=== PATIENT | male | born 1990 | race African-American/Black ===

== ENCOUNTER 2016-04-14 08:53 | Emergency (ER) | payer SELFPAY ==
[~2016-04-14] VITALS: Ht 180.3 cm; Wt 115.0 kg
[~2016-04-14 08:53] MED LIST: Z.0.NO CURRENT MEDS
[2016-04-14 08:57] VITALS: BP 140/69; PULSE 75; RESP 18; TEMP 97.8; O2SAT 100
[2016-04-14] MEDS ORDERED: IBUP800T23 PO (12:04)
--- NOTE | 2016-04-14 12:04 | PD ---
HPI Chief Complaint: Abdominal Pain Time Seen by Provider: 11:56 Travel History International Travel<30 days: No Contact w/Intl Traveler<30days: No Traveled to known affect area: No History of Present Illness HPI 26 year old male presents to the emergency department for evaluation of lower abdominal pain/upper groin pain that has been occurring only with heavy lifting at work. Patient states that when he lifts anything heavy, he will have lower abdominal pain. When he is not lifting, pain is mild and "achy", but mostly resolved. He denies any bulge or evidence of hernia. He denies any fevers/ chills. No chest pain, no shortness of breath. No nausea/vomiting. No constipation or diarrhea. He denies any testicular pain or penile discharge. He denies any tobacco/drug use, admits to occasional alcohol use. He denies any other complaints at this time. [facility] Past Medical History Diminished Hearing: No Social History Alcohol Use: No Tobacco Use: No Substance Use: No Allergies-Medications (Allergen,Severity, Reaction): Coded Allergies: No Known Allergies (Verified Allergy, Mild, 06/21/06) Reported Meds & Prescriptions Reported Meds & Active Scripts Active Reported No Current Meds (Miscellaneous Medication) Misc Review of Systems Except as stated in HPI: all other systems reviewed are Neg Physical Exam Narrative GENERAL: Well developed, well nourished male patient, ambulatory and in no acute distress. Afebrile. SKIN: Warm and dry. HEAD: Normocephalic. Atraumatic. EYES: No scleral icterus. No injection or drainage. NECK: Supple, trachea midline. No JVD or lymphadenopathy. CARDIOVASCULAR: Regular rate and rhythm without murmurs, gallops, or rubs. RESPIRATORY: Breath sounds equal bilaterally. No accessory muscle use. Lung sounds clear to auscultation throughout. GASTROINTESTINAL: Abdomen soft, non-tender, nondistended. No abdominal/groin tenderness to palpation. No evidence of hernia. Tissues are soft. MUSCULOSKELETAL: No cyanosis, or edema. BACK: Nontender without obvious deformity. No CVA tenderness. Data Data Last Documented VS Vital Signs Date Time Temp Pulse Resp B/P Pulse Ox O2 Delivery O2 Flow Rate FiO2 04/14/16 08:57 97.8 75 18 140/69 100 Room Air MDM Medical Decision Making Medical Screen Exam Complete: Yes Emergency Medical Condition: Yes Medical Record Reviewed: Yes Differential Diagnosis muscle strain vs. muscle spasm vs. hernia vs. uti Narrative Course 26 year old male presents to the emergency department for evaluation of groin pain when lifting for the past 2 days. When he is not lifting, pain is relieved. Physical exam is reassuring and no evidence of hernia on exam. No groin/abdominal tenderness to palpation. Vital signs stable. I discussed the findings and plan with my attending physician, Dr. Bach, who agrees with plan and disposition. Patient is instructed on symptoms to return immediately for. Patient is agreeable. He will be discharged with a prescription for Ibuprofen. Diagnosis Primary Impression: Inguinal muscle strain Qualified Code: S39.013A - Inguinal muscle strain, initial encounter Referrals: Primary Care Physician call for appointment Patient Instructions: General Instructions, Muscle Strain (ED) Departure Forms: Tests/Procedures, Work Release Enter return to work date: Apr 16, 2016 Additional Instructions: Take Ibuprofen as directed as needed with food for pain. Follow up with your primary care physician. Return to the emergency department for any acute, worsening of symptoms. Med/Other Pt SpecificInfo: Prescription(s) given Scripts Ibuprofen 800 Mg [id number] Mg PO TID PRN (PAIN SCALE 1 TO 10) #21 TAB Ref 0 Prov:Crystal Perez 04/14/16 Disposition: 01 DISCHARGE HOME Condition: Stable Crystal Perez Apr 14, 2016 12:04
== END 2016-04-14 12:52 | disposition home or self-care (01) ==
LOC: NETRI 08:53
DX: S39.013A Strain of muscle, fascia and tendon of pelvis, initial encounter (principal); X50.0XXA Overexertion from strenuous movement or load, initial encounter; Y92.9 Unspecified place or not applicable; Y99.0 Civilian activity done for income or pay
CPT/HCPCS: 99282

== ENCOUNTER 2016-08-03 10:50 | Emergency (ER) | payer SELFPAY ==
[~2016-08-03] VITALS: Ht 177.8 cm; Wt 127.9 kg
[~2016-08-03 10:50] MED LIST changes: +IBUP800T23 PO
[2016-08-03 11:02] VITALS: BP 142/87; PULSE 77; RESP 18; TEMP 98.3; O2SAT 98
--- NOTE | 2016-08-03 11:32 | PD ---
HPI Chief Complaint: Abdominal Pain Time Seen by Provider: 11:23 Travel History International Travel<30 days: No Contact w/Intl Traveler<30days: No Traveled to known affect area: No History of Present Illness HPI Says abdominal pain on the chief complaint but he came here because his sexual partner was diagnosed with Trichomonas. He does not have any symptoms. He is not having abdominal pain or nausea or vomiting or urethral discharge or fever. Severity is mild PFSH Past Medical History Medical History: Denies Significant Hx Diminished Hearing: No Immunizations Current: Yes Tetanus Vaccination: < 5 Years Influenza Vaccination: No Past Surgical History Surgical History: No Previous Surgery Social History Alcohol Use: Yes (occ) Tobacco Use: No Substance Use: No Allergies-Medications (Allergen,Severity, Reaction): Coded Allergies: No Known Allergies (Verified , 08/03/16) Reported Meds & Prescriptions Reported Meds & Active Scripts Active No Active Prescriptions or Reported Medications Review of Systems General / Constitutional: No: Fever HENT: No: Headaches Cardiovascular: No: Chest Pain or Discomfort Physical Exam Narrative GASTROINTESTINAL: Abdomen soft, non-tender, nondistended. Positive bowel sounds. No hepato-splenomegaly, or palpable masses. No guarding. : Circumcised penis without lesions. no inguinal hernia SKIN: Focused skin assessment reveals no rash or ulcers. Skin is warm and dry. Palpation shows no induration or nodules. Data Data Last Documented VS Vital Signs Date Time Temp Pulse Resp B/P Pulse Ox O2 Delivery O2 Flow Rate FiO2 08/03/16 11:14 08/03/16 11:02 98.3 77 18 98 Room Air MDM Medical Decision Making Medical Screen Exam Complete: Yes Emergency Medical Condition: Yes Medical Record Reviewed: Yes Differential Diagnosis Urethritis, colitis, hernia Narrative Course I have reviewed the patient's electronic medical record. Patient's exam is normal and he is asymptomatic. Recommending health department visit for STD evaluation I offered him treatment of trichomonas but he declines and wants to get tested prior to treatment Diagnosis Primary Impression: Exposure to STD Additional Instructions: Follow up with health department for STD testing Med/Other Pt SpecificInfo: Other Scripts No Active Prescriptions or Reported Meds Disposition: 01 DISCHARGE HOME Condition: Stable Martin Lee MD Aug 03, 2016 11:32
== END 2016-08-03 11:35 | disposition home or self-care (01) ==
LOC: PHED 10:50
DX: Z20.2 Contact with and (suspected) exposure to infections with a predominantly sexual mode of transmission (principal)
CPT/HCPCS: 99281

== ENCOUNTER 2017-01-20 08:32 | Emergency (ER) | payer SELFPAY ==
[~2017-01-20] VITALS: Ht 180.3 cm; Wt 128.0 kg
[2017-01-20 08:34] VITALS: BP 137/65; PULSE 87; RESP 16; TEMP 98.1; O2SAT 100
[2017-01-20 08:44] VITALS: BP 167/69; PULSE 65; RESP 16; O2SAT 99
[2017-01-20] MEDS ORDERED: ASPIRIN 81 MG CHEW TAB PO ONE (08:45)
[2017-01-20] MEDS ORDERED: MORPHINE SULFATE 4 MG/ML INJ IV PUSH ONE (08:45)
[2017-01-20] MEDS ORDERED: ONDANSETRON HCL 4 MG/2 ML VIAL IV PUSH ONE (08:45)
[2017-01-20] MEDS ORDERED: SODIUM CHLORIDE 0.9% FLUSH 10 ML FLUSH IVF PRN (08:45)
--- NOTE | 2017-01-20 08:47 | PD ---
HPI . Chest pain Chief Complaint: Chest Pain Time Seen by Provider: 08:43 Travel History International Travel<30 days: No Contact w/Intl Traveler<30days: No Traveled to known affect area: No History of Present Illness HPI This patient presents ambulatory with a chief complaint of chest pain. Onset was on awakening approximately 30 minutes prior to presentation. He describes a pressure-like sensation in the center of his chest. There is no radiation. He rates it 8/10. He has no associated shortness of breath, nausea or diaphoresis. His symptoms have been continuous with no modifying factors. The patient reports episodic elevated blood pressure in the recent past but takes no medication for same. He denies the use of tobacco products. He denies the use of illicit drugs. The patient reports a 100 pound weight gain over the last year. He states that he has gained weight by eating out a lot and not exercising. PFSH Past Medical History Medical History: Denies Significant Hx Diminished Hearing: No Immunizations Current: Yes Influenza Vaccination: No Past Surgical History Surgical History: No Previous Surgery Social History Alcohol Use: Yes (occ) Tobacco Use: No Substance Use: No Allergies-Medications (Allergen,Severity, Reaction): Coded Allergies: No Known Allergies (Verified , 08/03/16) Reported Meds & Prescriptions Reported Meds & Active Scripts Active No Active Prescriptions or Reported Medications Review of Systems Except as stated in HPI: all other systems reviewed are Neg Cardiovascular: Positive: Chest Pain or Discomfort Physical Exam Narrative GENERAL: Pleasant, healthy-appearing man in no acute distress. SKIN: warm/dry. HEAD: Normocephalic. Atraumatic. EYES: Pupils equal and round. No scleral icterus. No injection or drainage. ENT: No nasal bleeding or discharge. Mucous membranes pink and moist. NECK: Trachea midline. Full range of motion without pain.. CARDIOVASCULAR: Regular rate and rhythm. Heart sounds are normal. RESPIRATORY: No accessory muscle use. Clear to auscultation. Breath sounds equal bilaterally. No chest wall tenderness. GASTROINTESTINAL: Abdomen soft. Nontender. Bowel sounds present. Nondistended. MUSCULOSKELETAL: No obvious deformities. No peripheral edema. No calf tenderness. NEUROLOGICAL: Awake and alert. No obvious cranial nerve deficits. Motor grossly within normal limits. Normal speech. PSYCHIATRIC: Appropriate mood and affect; insight and judgment normal. Data Data Last Documented VS Vital Signs Date Time Temp Pulse Resp B/P (MAP) Pulse Ox O2 Delivery O2 Flow Rate FiO2 01/20/17 08:44 65 16 167/69 (101) 99 Room Air 01/20/17 08:34 98.1 Orders Orders Electrocardiogram (01/20/17 ) Electrocardiogram (01/20/17 08:43) Basic Metabolic Panel (Bmp) (01/20/17 08:43) Ckmb (Isoenzyme) Profile (01/20/17 08:43) Complete Blood Count With Diff (01/20/17 08:43) Magnesium (Mg) (01/20/17 08:43) Prothrombin Time / Inr (Pt) (01/20/17 08:43) Act Partial Throm Time (Ptt) (01/20/17 08:43) Troponin I (01/20/17 08:43) Chest, Single Ap (01/20/17 08:43) Ecg Monitoring (01/20/17 08:43) Iv Access Insert/Monitor (01/20/17 08:43) Oximetry (01/20/17 08:43) Aspirin Chew (Aspirin Chew) (01/20/17 08:45) Morphine Inj (Morphine Inj) (01/20/17 08:45) Sodium Chloride 0.9% Flush (Ns Flush) (01/20/17 08:45) Ondansetron Inj (Zofran Inj) (01/20/17 08:45) CKMB (01/20/17 08:45) CKMB% (01/20/17 08:45) Labs Laboratory Tests Test 01/20/17 08:45 White Blood Count 12.4 TH/MM3 Red Blood Count 5.75 MIL/MM3 Hemoglobin 13.5 GM/DL Hematocrit 43.1 % Mean Corpuscular Volume 75.0 FL Mean Corpuscular Hemoglobin 23.5 PG Mean Corpuscular Hemoglobin Concent 31.4 % Red Cell Distribution Width 13.1 % Platelet Count 287 TH/MM3 Mean Platelet Volume 9.0 FL Neutrophils (%) (Auto) 66.5 % Lymphocytes (%) (Auto) 24.7 % Monocytes (%) (Auto) 6.4 % Eosinophils (%) (Auto) 1.6 % Basophils (%) (Auto) 0.8 % Neutrophils # (Auto) 8.3 TH/MM3 Lymphocytes # (Auto) 3.1 TH/MM3 Monocytes # (Auto) 0.8 TH/MM3 Eosinophils # (Auto) 0.2 TH/MM3 Basophils # (Auto) 0.1 TH/MM3 CBC Comment DIFF FINAL Differential Comment Prothrombin Time 11.1 SEC Prothromb Time International Ratio 1.0 RATIO Activated Partial Thromboplast Time 29.9 SEC Blood Urea Nitrogen 15 MG/DL Creatinine 1.13 MG/DL Random Glucose 99 MG/DL Calcium Level 8.9 MG/DL Magnesium Level 1.9 MG/DL Sodium Level 137 MEQ/L Potassium Level 4.0 MEQ/L Chloride Level 104 MEQ/L Carbon Dioxide Level 26.8 MEQ/L Anion Gap 6 MEQ/L Estimat Glomerular Filtration Rate 94 ML/MIN Total Creatine Kinase 532 U/L Creatine Kinase MB 1.5 NG/ML Creatine Kinase MB % 0.3 % Troponin I LESS THAN 0.02 NG/ML MDM Medical Decision Making Medical Screen Exam Complete: Yes Emergency Medical Condition: Yes Interpretation(s) EKG shows a sinus rhythm with no acute ischemic change. Differential Diagnosis Differential diagnosis of chest pain includes but is not limited to musculoskeletal pain, pulmonary embolism, acute coronary syndrome, pneumonia, pleurisy Narrative Course Patient presents with a chief complaint of chest pain. A chest pain evaluation has been initiated. He has been given aspirin. CBC & BMP Diagram 01/20/17 08:45 Calcium Level 8.9, Magnesium Level 1.9 trop < 0.02 CXR neg. I have discussed disposition with the patient. I have offered him an admission to the chest pain center for further evaluation. He prefers discharge to home. I believe that this is reasonable in an otherwise healthy man who does not smoke or use drugs. Diagnosis Primary Impression: Chest pain Qualified Codes: R07.9 - Chest pain, unspecified Referrals: [facility] Patient Instructions: Chest Pain (DC), General Instructions Scripts No Active Prescriptions or Reported Meds Disposition: DISCHARGE HOME Condition: Stable Anastasiia Agustin MD Jan 20, 2017 08:47
[2017-01-20 09:13] LABS: AUTOMATED NEUTROPHIL # 8.3 TH/MM3 (1.8-7.7); BASOPHIL # 0.1 TH/MM3 (0-0.2); BASOPHIL % 0.8 % (0.0-2.0); EOSINOPHIL # 0.2 TH/MM3 (0-0.4); EOSINOPHIL % 1.6 % (0.0-4.0); HEMATOCRIT 43.1 % (39.0-51.0); HEMO FLAGS DIFF FINAL; LYMPH % 24.7 % (9.0-44.0); LYMPHOCYTE # 3.1 TH/MM3 (1.0-4.8); MEAN CORPUSCULAR HEMOGLOBIN 23.5 PG (27.0-34.0); MEAN CORPUSCULAR HGB CONC 31.4 % (32.0-36.0); MONO % 6.4 % (0.0-8.0); NEUT % 66.5 % (16.0-70.0); PLATELET COUNT 287 TH/MM3 (150-450); RED BLOOD COUNT 5.75 MIL/MM3 (4.50-5.90); RED CELL DISTRIBUTION WIDTH 13.1 % (11.6-17.2); WHITE BLOOD COUNT 12.4 TH/MM3 (4.0-11.0)
[2017-01-20 09:19] LABS: APTT (PATIENT) 29.9 SEC (24.3-30.1); PROTHROMBIN TIME - PATIENT 11.1 SEC (9.8-11.6)
[2017-01-20 09:27] LABS: ANION GAP 6 MEQ/L (5-15); BICARBONATE 26.8 MEQ/L (21.0-32.0); BLOOD UREA NITROGEN 15 MG/DL (7-18); CHLORIDE 104 MEQ/L (98-107); GLOMERULAR FILTRATION RATE 94 ML/MIN (>89); MAGNESIUM 1.9 MG/DL (1.5-2.5); SODIUM (NA) 137 MEQ/L (136-145)
[2017-01-20 09:32] LABS: CREATINE KINASE 532 U/L (39-308)
--- NOTE | 2017-01-20 09:40 | RADRPT ---
EXAM DATE/TIME: 01/20/2017 08:56 [facility] COMPARISON: No previous studies available for comparison. INDICATIONS : Right sharp chest pain from xyphoid radiating right. MEDICAL HISTORY : None. SURGICAL HISTORY : None. ENCOUNTER: Initial ACUITY: 1 day PAIN SCORE: 6/10 LOCATION: Right chest FINDINGS: A single view of the chest demonstrates the lungs to be symmetrically aerated without evidence of mas s, infiltrate or effusion. The cardiomediastinal contours are unremarkable. Osseous structures are intact. CONCLUSION: The lungs are clear. Deng Burgos MD on January 20, 2017 at 9:39 Board Certified Radiologist. This report was verified electronically.
[2017-01-20 09:44] LABS: CKMB 1.5 NG/ML (0.5-3.6)
[2017-01-20 10:00] VITALS: BP 122/69; PULSE 69; RESP 17; O2SAT 99
--- NOTE | 2017-01-20 14:56 | EKG ---
Date Performed: 01/20/2017 Time Performed: 08:42:30 PTAGE: 26 years EKG: Sinus rhythm BORDERLINE LEFT AXIS DEVIATION NONSPECIFIC ST ELEVATION BORDERLINE ECG NO PREVIOUS TRACING DOCTOR: Allen Reyes Interpretating Date/Time 01/20/2017 14:55:44
== END 2017-01-20 10:15 | disposition home or self-care (01) ==
LOC: NEPE 08:32
DX: R07.9 Chest pain, unspecified (principal); R03.0 Elevated blood-pressure reading, without diagnosis of hypertension
CPT/HCPCS: 71010; 80048; 82550; 82552; 83735; 84484; 85025; 85610; 85730; 93005; 96374; 96375